=== PATIENT | male | born 1995 | race American Indian/Alaskan Native ===

== ENCOUNTER 2020-05-21 13:57 | Emergency (ER) | payer OTHER ==
--- NOTE | 2020-05-21 17:29 | XRay Report ---
CHEST 2 VIEWS INDICATION / CLINICAL INFORMATION: Chest Pain. COMPARISON: None available. FINDINGS: SUPPORT DEVICES: None. HEART / MEDIASTINUM: No significant abnormality. LUNGS / PLEURA: No significant pulmonary or pleural abnormality. No pneumothorax. ADDITIONAL FINDINGS: No significant additional findings. IMPRESSION: No acute cardiopulmonary abnormality. Signer Name: Silvestre Lal MD Signed: 05/21/2020 5:24 PM Workstation Name: [id number]
--- NOTE | 2020-05-21 18:22 | Emergency Department Report ---
ED General Adult HPI - General Chief complaint: Chest Pain Stated complaint: CHEST PAIN Time Seen by Provider: 05/21/20 18:04 Source: patient Mode of arrival: Ambulatory Limitations: No Limitations - History of Present Illness Initial comments: Patient is a 25-year-old male presents emergency room with complaints of chest pain that began 3 to 4 months ago. He describes the pain as an aching. He states the pain is worse with movement. He denies any nausea, vomiting, diarrhea, cough, fever, leg swelling, shortness of breath. He states that he does have aching in his arms and his legs. No past medical history. No allergies to medications. Patient is a non-smoker. No family cardiac history. - Related Data Previous Rx's Medication Instructions Recorded Last Taken Type Naproxen [EC-Naprosyn] 500 mg PO BID PRN #14 tablet. 05/21/20 Unknown Rx Allergies Allergy/AdvReac Type Severity Reaction Status Date / Time No Known Allergies Allergy Unverified 05/21/20 14:03 ED Review of Systems ROS: Stated complaint: CHEST PAIN Other details as noted in HPI Comment: All other systems reviewed and negative ED Past Medical Hx - Past Medical History Previous Medical History?: No - Surgical History Past Surgical History?: No - Social History Smoking Status: Never Smoker Substance Use Type: None - Medications Home Medications: Home Medications Medication Instructions Recorded Confirmed Last Taken Type Naproxen [EC-Naprosyn] 500 mg PO BID PRN #14 tablet. 05/21/20 Unknown Rx ED Physical Exam - General Limitations: No Limitations General appearance: alert, in no apparent distress - Head Head exam: Present: atraumatic, normocephalic - Eye Eye exam: Present: normal appearance - ENT ENT exam: Present: mucous membranes moist - Respiratory Respiratory exam: Present: normal lung sounds bilaterally. Absent: respiratory distress, wheezes, rales, rhonchi, stridor, chest wall tenderness, accessory muscle use, decreased breath sounds, prolonged expiratory - Cardiovascular Cardiovascular Exam: Present: regular rate, normal rhythm, normal heart sounds. Absent: systolic murmur, diastolic murmur, rubs, gallop - Neurological Exam Neurological exam: Present: alert, oriented X3 - Psychiatric Psychiatric exam: Present: normal affect, normal mood - Skin Skin exam: Present: warm, dry, intact ED Course Vital Signs 05/21/20 05/21/20 14:04 19:46 Temperature 98.2 F 98.3 F Pulse Rate 120 H 86 Respiratory 20 18 Rate Blood Pressure 141/91 129/87 [Left] O2 Sat by Pulse 100 100 Oximetry ED Medical Decision Making - Lab Data Result diagrams: 05/21/20 18:20 05/21/20 18:20 Lab Results 05/21/20 05/21/20 05/21/20 Range/Units 18:05 18:05 18:20 WBC 4.8 (4.5-11.0) K/mm3 RBC 5.00 (3.65-5.03) M/mm3 Hgb 16.0 H (11.8-15.2) gm/dl Hct 47.3 H (35.5-45.6) % MCV 95 H (84-94) fl MCH 32 (28-32) pg MCHC 34 (32-34) % RDW 12.9 L (13.2-15.2) % Plt Count 263 (140-440) K/mm3 Lymph % (Auto) 35.3 H (13.4-35.0) % Kleberg % (Auto) 5.4 (0.0-7.3) % Eos % (Auto) 0.2 (0.0-4.3) % Baso % (Auto) 0.5 (0.0-1.8) % Lymph # 1.7 (1.2-5.4) K/mm3 Kleberg # 0.3 (0.0-0.8) K/mm3 Eos # 0.0 (0.0-0.4) K/mm3 Baso # 0.0 (0.0-0.1) K/mm3 Seg Neutrophils % 58.6 (40.0-70.0) % Seg Neutrophils # 2.8 (1.8-7.7) K/mm3 Sodium (137-145) mmol/L Potassium (3.6-5.0) mmol/L Chloride (98-107) mmol/L Carbon Dioxide (22-30) mmol/L Anion Gap mmol/L BUN (9-20) mg/dL Creatinine (0.8-1.3) mg/dL Estimated GFR ml/min BUN/Creatinine Ratio % Glucose (75-100) mg/dL Calcium (8.4-10.2) mg/dL Magnesium 1.80 (1.7-2.3) mg/dL Total Bilirubin (0.1-1.2) mg/dL AST (5-40) units/L ALT (7-56) units/L Alkaline Phosphatase (35-129) units/L Total Creatine Kinase 217 H (55-170) units/L Troponin T < 0.010 (0.00-0.029) ng/mL Total Protein (6.3-8.2) g/dL Albumin (3.9-5) g/dL Albumin/Globulin Ratio % // Range/Units 18:20 WBC (4.5-11.0) K/mm3 RBC (3.65-5.03) M/mm3 Hgb (11.8-15.2) gm/dl Hct (35.5-45.6) % MCV (84-94) fl MCH (28-32) pg MCHC (32-34) % RDW (13.2-15.2) % Plt Count (140-440) K/mm3 Lymph % (Auto) (13.4-35.0) % Kleberg % (Auto) (0.0-7.3) % Eos % (Auto) (0.0-4.3) % Baso % (Auto) (0.0-1.8) % Lymph # (1.2-5.4) K/mm3 Kleberg # (0.0-0.8) K/mm3 Eos # (0.0-0.4) K/mm3 Baso # (0.0-0.1) K/mm3 Seg Neutrophils % (40.0-70.0) % Seg Neutrophils # (1.8-7.7) K/mm3 Sodium 139 (137-145) mmol/L Potassium 3.9 (3.6-5.0) mmol/L Chloride 99.7 (98-107) mmol/L Carbon Dioxide 24 (22-30) mmol/L Anion Gap 19 mmol/L BUN 5 L (9-20) mg/dL Creatinine 0.8 (0.8-1.3) mg/dL Estimated GFR > 60 ml/min BUN/Creatinine Ratio 6 % Glucose 88 (75-100) mg/dL Calcium 9.7 (8.4-10.2) mg/dL Magnesium (1.7-2.3) mg/dL Total Bilirubin 1.20 (0.1-1.2) mg/dL AST 20 (5-40) units/L ALT 21 (7-56) units/L Alkaline Phosphatase 73 (35-129) units/L Total Creatine Kinase (55-170) units/L Troponin T (0.00-0.029) ng/mL Total Protein 7.7 (6.3-8.2) g/dL Albumin 4.5 (3.9-5) g/dL Albumin/Globulin Ratio 1.4 % - EKG Data EKG shows normal: sinus rhythm, axis, ST-T waves Rate: tachycardia - EKG Data 05/21/20 21:50 prolonged NJ interval at 239 LAE no STEMI - Radiology Data Radiology results: report reviewed CHEST 2 VIEWS INDICATION / CLINICAL INFORMATION: Chest Pain. COMPARISON: None available. FINDINGS: SUPPORT DEVICES: None. HEART / MEDIASTINUM: No significant abnormality. LUNGS / PLEURA: No significant pulmonary or pleural abnormality. No pneumothorax. ADDITIONAL FINDINGS: No significant additional findings. IMPRESSION: No acute cardiopulmonary abnormality. Signer Name: Mili Lal MD Signed: 05/21/2020 5:24 PM Workstation Name: [id number] Transcribed By: SS Dictated By: MILI LAL Electronically Authenticated By: MILI LAL Signed Date/Time: 05/21/201723 DD/ 23 TD/TT: - Medical Decision Making Patient is a 25-year-old male presents emergency room with complaints of chest pain that began 3 to 4 months ago. He describes the pain as an aching. He states the pain is worse with movement. He denies any nausea, vomiting, diarrhea, cough, fever, leg swelling, shortness of breath. He states that he does have aching in his arms and his legs. No past medical history. No allergies to medications. Patient is a non-smoker. No family cardiac history. Initial vitals with tachycardia which improved to normal upon repeat. No abnormality on physical exam as documented in chart. labs are normal. troponin is negative. EKG with prolonged NJ interval at 239, LAE, no STEMI. CXR: No acute cardiopulmonary abnormality. pt has no PE risks factors, low risk based on wells criteria for PE, PE unlikely. heart score is 1, RAYMOND score is 0, low risk for cardiac event. pt has been having CP for 3-4 months, ACS unlikely. presenting with atypical CP. pt given prescription for naproxen. advised pt Please take medication as prescribed. Please follow-up with a primary care doctor. Please follow-up with a cushion builder. Return to emergency room for any new or worsening symptoms. Critical care attestation.: If time is entered above; I have spent that time in minutes in the direct care of this critically ill patient, excluding procedure time. ED Disposition Clinical Impression: Atypical chest pain Disposition: TO HOME OR SELFCARE Is pt being admited?: No Does the pt Need Aspirin: No Condition: Stable Instructions: Chest Pain (ED), Costochondritis (ED) Additional Instructions: Please take medication as prescribed. Please follow-up with a primary care doctor. Please follow-up with a cushion builder. Return to emergency room for any new or worsening symptoms. Prescriptions: Naproxen [EC-Naprosyn] 500 mg PO BID PRN #14 tablet.dr THOMAS Reason: pain Referrals: [facility] MD KELI [Primary Care Provider] - 2-3 Days CURTIS WATT MD [Staff Physician] - 2-3 Days VAHID OWRTHY MD [Staff Physician] - 2-3 Days Time of Disposition: 20:47 Print Language: LUXEMBOURGER
[2020-05-21 18:59] LABS: Basophils % (Auto) 0.5 % (0.0-1.8); Eosinophils % (Auto) 0.2 % (0.0-4.3); Hematocrit 47.3 % (35.5-45.6); Lymphocytes # (Auto) 1.7 K/mm3 (1.2-5.4); Lymphocytes % (Auto) 35.3 % (13.4-35.0); Mean Corpuscular HGB Conc 34 % (32-34); Mean Corpuscular Volume 95 fl (84-94); Monocytes # (Auto) 0.3 K/mm3 (0.0-0.8); Monocytes % (Auto) 5.4 % (0.0-7.3); Platelet Count 263 K/mm3 (140-440); Red Cell Distribution Width 12.9 % (13.2-15.2)
[2020-05-21 19:49] VITALS: BP 129/87
[2020-05-21 20:18] LABS: Alanine Aminotransferase 21 units/L (7-56); Albumin 4.5 g/dL (3.9-5); BUN/Creatinine Ratio 6; Blood Urea Nitrogen 5 mg/dL (9-20); Calcium 9.7 mg/dL (8.4-10.2); Hemolysis Index 9
== END 2020-05-21 20:54 | disposition home or self-care (01) ==
LOC: ED 13:57
DX: R07.89 Other chest pain (principal); Z79.899 Other long term (current) drug therapy
CPT/HCPCS: 36415; 71046; 80053; 82550; 83735; 84484; 85025

== ENCOUNTER 2020-05-24 13:52 | Emergency (ER) | payer OTHER ==
[2020-05-24 15:13] VITALS: BP 118/80
== END 2020-05-24 17:50 | disposition left against medical advice (07) ==
LOC: ED 13:52
DX: R03.0 Elevated blood-pressure reading, without diagnosis of hypertension (principal); Z53.21 Procedure and treatment not carried out due to patient leaving prior to being seen by health care provider

== ENCOUNTER 2020-06-18 02:12 | Emergency (ER) | payer OTHER ==
[2020-06-18 02:43] VITALS: BP 137/84
== END 2020-06-18 03:40 | disposition left against medical advice (07) ==
LOC: ED 02:12
DX: R10.10 Upper abdominal pain, unspecified (principal); M79.602 Pain in left arm; M79.601 Pain in right arm; M79.605 Pain in left leg; M79.604 Pain in right leg; Z53.21 Procedure and treatment not carried out due to patient leaving prior to being seen by health care provider

== ENCOUNTER 2020-07-28 21:08 | Emergency (ER) | payer OTHER | END 2020-07-28 21:45 | disposition left against medical advice (07) | LOC: ED 21:08 | DX: T18.0XXA Foreign body in mouth, initial encounter (principal); Z53.21 Procedure and treatment not carried out due to patient leaving prior to being seen by health care provider ==